=== PATIENT | male | born 1975 | race Caucasian/White ===

== ENCOUNTER 2020-01-14 10:37 | Emergency (ER) | payer BC, OTHER ==
[~2020-01-14] VITALS: Ht 175.3 cm; Wt 154.2 kg
--- NOTE | 2020-01-14 10:58 | NUR ---
Cough, congestion, and sob x 3 days. no relief from rescue inhaler. Denies any fever, chills, body aches, or malaise. Patient a/ox4, breathing even and unlabored, no sob noted, needs attended. kept comfortable.
[2020-01-14] MEDS ORDERED: ALBUTEROL SULFATE 8 GM HFA.AER.AD IH ONE (11:00)
[2020-01-14] MEDS ORDERED: predniSONE 20 MG TABLET PO ONE (11:00)
--- NOTE | 2020-01-14 11:00 | NUR ---
DR. GONZALEZ AT BEDSIDE FOR EVAL.
[2020-01-14] MEDS ORDERED: predniSONE 20 MG TABLET ONE (11:02)
--- NOTE | 2020-01-14 11:08 | NUR ---
CONSULTANT INTERN AT BEDSIDE.
--- NOTE | 2020-01-14 11:21 | NUR ---
Inhaler was self administered by patient. Dr. Mirza was at bedside.
--- NOTE | 2020-01-14 11:41 | NUR ---
PATIENT A/OX4, BREATHING EVEN AND UNLABORED, NO SOB NOTED, NO WHEEZING NOTED. AMBULATORY WITHS TEADY GAIT. Patient discharged to home in stable condition. Written and verbal after care instructions given. Patient verbalizes understanding of instruction.
[2020-01-14 11:42] VITALS: BP 143/84
== END 2020-01-14 11:42 | disposition home or self-care (01) ==
LOC: ER 10:39
DX: J45.909 Unspecified asthma, uncomplicated (principal); Z88.0 Allergy status to penicillin
CPT/HCPCS: 71045; 99283; J7512

== ENCOUNTER 2020-01-15 23:32 | Emergency (ER) | payer OTHER ==
[~2020-01-15] VITALS: Ht 170.2 cm; Wt 149.7 kg
--- NOTE | 2020-01-15 23:40 | NUR ---
BIBS. SOB AND PRODUCTIVE COUGH X 4 DAYS. AFEBRILE. HAD CONTACT W/ CO WORKER WHO WENT ON A CRUISE 1.5 WEEKS AGO, DOES NOT KNOW WHERE THE CRUISE WENT TO ER BED 5
--- NOTE | 2020-01-15 23:54 | NUR ---
X. RAY AT THE BED SIDE
[2020-01-16] MEDS ORDERED: ALBUTEROL FS 2.5 MG/3 ML VIAL.NEB NEB ONE
[2020-01-16] MEDS ORDERED: methylPREDNISolone SOD SUCC 125 MG/2ML VIAL IV ONE
[2020-01-16] MEDS ORDERED: IPRATROPIUM NEB FS 0.5 MG/2.5 ML AMPUL.NEB NEB ONE
[2020-01-16 00:42] LABS: BASOPHILS % (AUTO) 0.3 % (0.0-2.0); EOSINOPHILS % (AUTO) 0.4 % (0.0-6.0); HEMATOCRIT 39 % (39-51); HEMOGLOBIN 13.1 g/dL (13.5-17.5); LYMPHOCYTES # (AUTO) 2.4 /CMM (0.8-4.8); LYMPHOCYTES % (AUTO) 30.5 % (20.0-44.0); MEAN CORPUSCULAR HGB CONC 33 g/dl (31.0-36.0); MEAN CORPUSCULAR VOLUME 85 fL (80-96); MONOCYTES # (AUTO) 1.1 /CMM (0.1-1.30); MONOCYTES % (AUTO) 13.9 % (2.0-12.0); NEUTROPHILS # (AUTO) 4.3 /CMM (1.8-8.9); NEUTROPHILS % (AUTO) 54.9 % (43.0-81.0); PLATELET COUNT (AUTO) 226 /CMM (150-450); RED BLOOD CELL COUNT(AUTO) 4.64 MIL/uL (4.5-6.0); WHITE BLOOD COUNT (AUTO) 7.8 K/uL (4.3-11.0)
[2020-01-16] MEDS ORDERED: methylPREDNISolone SOD SUCC 125 MG/2ML VIAL ONE (00:44)
[2020-01-16] MEDS ORDERED: IPRATROPIUM NEB FS 0.5 MG/2.5 ML AMPUL.NEB ONE (00:45)
[2020-01-16] MEDS ORDERED: ALBUTEROL FS 2.5 MG/0.5 ML VIAL.NEB ONE (00:45)
--- NOTE | 2020-01-16 00:45 | NUR ---
BLOOD DRAWN AND SENT TO LAB
[2020-01-16 00:56] LABS: BILIRUBIN,DIRECT 0.2 mg/dL (0.0-0.2); BILIRUBIN,TOTAL 0.9 mg/dL (0.2-1.0); CALCIUM, SERUM 8.4 mg/dL (8.5-10.1); CREATININE 1.1 mg/dL (0.6-1.3); POTASSIUM 3.7 mmol/L (3.5-5.1); TOTAL PROTEIN, SERUM 6.4 g/dL (6.4-8.2)
--- NOTE | 2020-01-16 01:02 | NUR ---
[facility] AT BEDSIDE FOR TREATMENT
[2020-01-16 01:36] VITALS: BP 103/89
--- NOTE | 2020-01-16 03:13 | NUR ---
PT ACCEPTED TO [facility] ROOM 4212. # FOR REPORT [phone]. [facility] ETA [phone]
[2020-01-16 03:56] LABS: ABG BASE EXCESS -2.7 mmol/L; ABG OXYGEN SATURATION 98.6 % (92.0-98.5); ABG PH 7.381 (7.350-7.450); ABG PO2 160.1 mmHg (75.0-100.0); AaDO2 110.3 mmHg; COHb 0.2 % (0.5-1.5); MetHb 0.6 % (0.0-1.5); O2Hb 97.8 % (94.0-97.0); SITE, ABG Right Radial
--- NOTE | 2020-01-16 07:06 | NUR ---
[facility] at bedside for transport to [facility] .
== END 2020-01-16 07:19 | disposition short-term general hospital (02) ==
LOC: ER 23:33
DX: J45.901 Unspecified asthma with (acute) exacerbation (principal); Z88.0 Allergy status to penicillin
CPT/HCPCS: 36415; 36600 ×2; 71045; 80048; 80076; 82803; 85025; 87040; 87633; 93005; 94640; 96374; 99285; J2930